=== PATIENT | female | born 1960 ===

== ENCOUNTER 2020-02-10 12:21 | Emergency (ER) | payer OTHER ==
[~2020-02-10] VITALS: Ht 152.4 cm; Wt 63.5 kg
[2020-02-10] MEDS ORDERED: OXYC5 PO (15:42)
[2020-02-10] MEDS ORDERED: VALTREX PO (15:42)
== END 2020-02-10 15:55 | disposition home or self-care (01) ==
LOC: ER 12:21
DX: B02.9 Zoster without complications (principal)
CPT/HCPCS: 99282; A9270

== ENCOUNTER 2021-02-03 07:42 | Day surgery (SDC) | payer OTHER ==
[~2021-02-03] VITALS: Ht 162.6 cm; Wt 65.4 kg
[~2021-02-03 07:42] MED LIST: OXYC5 PO; VALTREX PO
--- NOTE | 2021-02-03 10:23 | NUR ---
02/03/21 1023 Mame Wen POST-PROCEDURE PT C/O 01/05 ABD PAIN IN LUQ/LLQ. NOTIFIED & ORDERED CT IMAGING OF ABD. PT TOLERATING PO INTAKE, OKAY'D BY DR. ROSAS. SPOUSE TO ROOM & UPDATED ON PROCEDURE & IMAGING.
[2021-02-05 12:24] LABS: Performing Lab SYMBIODX; Test Name TISSUE BIOPSY
== END 2021-02-03 11:45 | disposition home or self-care (01) ==
LOC: ORSCSDS 07:42
PROVIDERS: Pathology Clinical Pathology/Laboratory Medicine
DX: K21.9 Gastro-esophageal reflux disease without esophagitis (principal); K29.70 Gastritis, unspecified, without bleeding; B96.81 Helicobacter pylori [H. pylori] as the cause of diseases classified elsewhere; Z12.11 Encounter for screening for malignant neoplasm of colon; D12.2 Benign neoplasm of ascending colon; K64.8 Other hemorrhoids
CPT/HCPCS: 74176; 88305; 88342; J2704; J7120

== ENCOUNTER → 2021-04-15 | Outpatient (CLI) | payer OTHER ==
[~2021-04-15] MED LIST changes: +ONDA4 PO; +PANT40 PO; +SUCR1 PO
== END ==
LOC: LAB SHORT 14:19
DX: L08.9 Local infection of the skin and subcutaneous tissue, unspecified (principal)
CPT/HCPCS: 88312

== ENCOUNTER 2021-04-20 16:31 | Emergency (ER) | payer OTHER ==
[~2021-04-20] VITALS: Ht 162.6 cm; Wt 72.6 kg
[~2021-04-20 16:31] MED LIST changes: -ONDA4 PO; -PANT40 PO; -SUCR1 PO
[2021-04-20 17:14] LABS: BASOPHILS ABSOLUTE AUTO 0.03 K/mm3 (0.00-0.23); BASOPHILS PERCENT AUTO 0 % (0-2); EOSINOPHILS PERCENT AUTO 0 % (0-6); Hematocrit 40.9 % (33.0-51.0); Hemoglobin 13.9 g/dL (11.5-16.0); IMMATURE GRAN ABSOLUTE AUTO 0.04 K/mm3 (0.00-0.10); IMMATURE GRAN PERCENT AUTO 0 % (0-1); LYMPHOCYTES ABSOLUTE AUTO 2.14 K/mm3 (0.84-5.20); LYMPHOCYTES PERCENT AUTO 16 % (21-46); MONOCYTES ABSOLUTE AUTO 0.43 K/mm3 (0.16-1.47); MONOCYTES PERCENT AUTO 3 % (4-13); Mean Corpuscular HGB 29.6 pg (26.0-34.0); Mean Corpuscular Volume 87 fL (80-100); Mean Platelet Volume 9.3 fL (9.1-12.4); NEUTROPHILS ABSOLUTE AUTO 10.37 K/mm3 (1.96-9.15); NEUTROPHILS PERCENT AUTO 80 % (41-73); Platelet Count 225 K/mm3 (150-400); RDW Coefficient Variation 12.4 % (11.7-14.2); RDW Standard Deviation 39.9 fL (35.1-46.3); White Blood Cell Count 13.01 K/mm3 (4.00-11.30)
[2021-04-20 17:53] LABS: Alanine Aminotransfer (ALT/SGP 27 U/L (12-78); Albumin, Blood 3.8 g/dL (3.4-5.0); Alk Phos 83 U/L (50-136); Anion Gap 8 mmol/L (6-16); Aspartate Aminotrans (AST/SGOT 21 U/L (12-37); Bilirubin, Total 0.9 mg/dL (0.1-1.0); Blood Urea Nitrogen 19 mg/dL (8-24); CO2, Blood 26 mmol/L (21-32); Calcium, Blood 8.8 mg/dL (8.5-10.1); Chloride, Blood 105 mmol/L (98-108); Creatinine, Blood 0.63 mg/dL (0.40-1.00); Glomerular Filtration Rate >60 (60-); Glucose, Blood 111 mg/dL (70-99); Potassium, Blood 3.7 mmol/L (3.5-5.5); Sodium, Blood 139 mmol/L (136-145); Total Protein, Blood 7.8 g/dL (6.4-8.2)
[2021-04-20 19:16] LABS: Source, Urine Clean Catch
[2021-04-20 19:20] LABS: Bilirubin, Urine Neg (Neg); Blood, Urine Neg (Neg); Glucose Qualitative, Urine Neg (Neg); Ketones, Urine 2+ (Neg); Leukocyte Esterase, Urine Neg (Neg); Nitrite, Urine Neg (Neg); Protein, Urine 1+ (Neg); Urobilinogen, Urine NORM (Normal)
[2021-04-20 19:30] LABS: Appearance, Urine Clear (Clear); Color, Urine Pale Yellow (P-Yellow)
[2021-04-20] MEDS ORDERED: PANT40 PO (23:21)
[2021-04-20] MEDS ORDERED: SUCR1 PO (23:21)
[2021-04-20] MEDS ORDERED: ONDA4 PO (23:23)
== END 2021-04-20 23:41 | disposition home or self-care (01) ==
LOC: ER 16:31
PROVIDERS: Physician Assistant
DX: R10.13 Epigastric pain (principal); R10.12 Left upper quadrant pain; D72.829 Elevated white blood cell count, unspecified; K21.9 Gastro-esophageal reflux disease without esophagitis; Z79.899 Other long term (current) drug therapy
CPT/HCPCS: 36415; 74177; 76856; 80053; 81025; 83605; 83690; 84484; 85025; 93005; 93010; 96372; 96374; 96375; 99284-25; A9270; C9113; J0780; J1200; J1630; J1885; J2270; J2405; J7030; Q9967

== ENCOUNTER 2021-09-11 06:35 | Day surgery (SDC) | payer OTHER ==
[~2021-09-11] VITALS: Ht 162.6 cm; Wt 70.4 kg
[~2021-09-11 06:35] MED LIST changes: +ONDA4 PO; +PANT40 PO; +SUCR1 PO
== END 2021-09-11 08:53 | disposition home or self-care (01) ==
LOC: ORSCSDS 06:35
PROVIDERS: Student in an Organized Health Care Education/Training Program
PROC: 0DB78ZX Excision of Stomach, Pylorus, Via Natural or Artificial Opening Endoscopic, Diagnostic (ICD-10-PCS; principal; 2021-09-11 08:00)
PROC: 0DB48ZX Excision of Esophagogastric Junction, Via Natural or Artificial Opening Endoscopic, Diagnostic (ICD-10-PCS; principal; 2021-09-11 08:00)
DX: R10.13 Epigastric pain (principal); K29.70 Gastritis, unspecified, without bleeding; Z79.899 Other long term (current) drug therapy
CPT/HCPCS: 88305; 88341; 88342; J2704; J7120

== ENCOUNTER → 2025-02-19 | Outpatient (CLI) | payer OTHER | LOC: LAB SHORT 10:41 → LAB 10:41 | DX: K21.00 Gastro-esophageal reflux disease with esophagitis, without bleeding (principal); L65.9 Nonscarring hair loss, unspecified | CPT/HCPCS: 87338 ==